=== PATIENT | male | born 1985 | race American Indian/Alaskan Native ===

== ENCOUNTER 2021-02-24 10:45 | Emergency (ER) | payer OTHER ==
[~2021-02-24] VITALS: Ht 165.1 cm; Wt 79.4 kg
[2021-02-24 10:50] VITALS: BP 134/96
--- NOTE | 2021-02-24 11:00 | NUR ---
PT AMB TO BED 12.
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
[2021-02-24] MEDS ORDERED: KETOROLAC 60 MG/2 ML VIAL IM ONE (11:25)
--- NOTE | 2021-02-24 11:29 | NUR ---
DR. GARZA AT PT BEDSIDE FOR FURTHER EVALUATION.
[2021-02-24] MEDS ORDERED: IBUP-2213 PO (11:57)
[2021-02-24 12:42] VITALS: BP 128/91
== END 2021-02-24 17:08 | disposition home or self-care (01) ==
LOC: MED 10:45
DX: M79.674 Pain in right toe(s) (principal); M79.675 Pain in left toe(s); F12.90 Cannabis use, unspecified, uncomplicated; Z79.899 Other long term (current) drug therapy; Z98.890 Other specified postprocedural states
CPT/HCPCS: 73630; 96372; 99283; J1885

== ENCOUNTER 2024-01-28 21:38 | Emergency (ER) | payer OTHER ==
[~2024-01-28] VITALS: Ht 165.1 cm; Wt 74.1 kg
[~2024-01-28 21:38] MED LIST: IBUP-2213 PO
[2024-01-28 21:48] VITALS: BP 132/83; PULSE 67; RESP 16; TEMP 98.1; O2SAT 100
[2024-01-28] MEDS: FLUORESCEIN OPTH STRIP 1 MG OP ONE (22:50)
[2024-01-28] MEDS: TETRACAINE HCL/PF 0.5% OPTH 4 ML BTL OP ONE (22:50)
[2024-01-28] MEDS ORDERED: OLOP5DRO19 OP (22:51)
[2024-01-28 23:11] VITALS: BP 125/68; PULSE 65; RESP 14; TEMP 98.1; O2SAT 97
== END 2024-01-28 23:11 | disposition home or self-care (01) ==
LOC: MED 21:38
DX: H10.13 Acute atopic conjunctivitis, bilateral (principal); Z79.899 Other long term (current) drug therapy
CPT/HCPCS: 99283